=== PATIENT | male | born 2000 | race Caucasian/White ===

== ENCOUNTER 2018-05-22 12:56 | Emergency (ER) | payer OTHER ==
[~2018-05-22] VITALS: Ht 182.9 cm; Wt 72.0 kg
[2018-05-22 13:26] VITALS: BP 140/76
--- NOTE | 2018-05-22 14:21 | NUR ---
LEFT EYE RED AND SWOLLEN. NO DRAINAGE NOTED.
[2018-05-22] MEDS ORDERED: SULF1TAB49 PO (14:53)
[2018-05-22] MEDS ORDERED: CEPH-572 PO (14:53)
[2018-05-22] MEDS ORDERED: sulfamethoxazole/trimethoprim DS (800/160mg) tablet PO ONE (14:55)
[2018-05-22] MEDS ORDERED: cephalexin 500mg capsule PO ONE (14:55)
== END 2018-05-22 15:05 | disposition home or self-care (01) ==
LOC: ER 12:57
DX: L03.211 Cellulitis of face (principal); Z79.899 Other long term (current) drug therapy
CPT/HCPCS: 99283